=== PATIENT | female | born 1985 | race Caucasian/White ===

== ENCOUNTER → 2018-12-29 | Outpatient (CLI) | payer OTHER ==
--- NOTE | 2018-12-29 21:28 | Diagnostic Imaging Report ---
EXAMINATION: Ultrasound of the left breast. INDICATION: Left breast pain. FINDINGS: The diagnostic mammogram performed earlier today failed to show any sign of malignancy or of an acute abnormality to account for the patient's left breast pain. On this study, there is no discrete solid or cystic mass in the medial aspect of the left breast to account for the patient's pain. Clinical follow-up is recommended. The mammogram did show a small area of increased density in the lateral aspect of the left breast. The ultrasound examination of this area shows no abnormality as well. Most likely that finding was secondary to fibroglandular tissue alone. IMPRESSION: There is no evidence for malignancy or for an acute abnormality. Clinical follow-up is recommended. ACR BI-RADS Category 1: Negative. Dictated by: Dictated on workstation # [id number]
--- NOTE | 2018-12-29 21:47 | Diagnostic Imaging Report ---
EXAMINATION: Digital mammogram bilateral diagnostic. The current study was also evaluated with a Computer Aided Detection (CAD) system. 3-D tomosynthesis was also performed and reviewed. INDICATION: Left breast pain. COMPARISON: This is the patient's baseline exam. At this time, she does complain of pain in the medial aspect of the left breast. FINDINGS: The fibroglandular tissue in both breasts is heterogeneously dense. This does limit the sensitivity of this exam. There is no primary or secondary sign of malignancy noted. There is no abnormality involving the medial aspect of the left breast to account for the patient's pain. There is a small area of increased density in the lateral aspect of the left breast on the craniocaudal view only. There is no persistent density seen in this area on the tomographic images and I suspect that this finding is related to fibroglandular tissue. Even so, I would recommend that this area be reevaluated by ultrasound as well. IMPRESSION: 1. There is no evidence for malignancy. 2. There is no abnormality to account for the patients' left breast pain either. 3. Ultrasound is pending for further evaluation. ACR BI-RADS Category 0: Incomplete. (Needs additional imaging evaluation). Result letter will be mailed to the patient. Note: At least 10% of breast cancer is not imaged by mammography. Dictated by: Dictated on workstation # [id number]
== END ==
LOC: RAD 13:09
PROVIDERS: ATTEND Nurse Practitioner Family
DX: N60.11 Diffuse cystic mastopathy of right breast (principal); N60.12 Diffuse cystic mastopathy of left breast
CPT/HCPCS: 76642; 77066